=== PATIENT | male | born 1965 | race Native Hawaiian/Other Pacific Islander ===

== ENCOUNTER 2017-02-28 08:39 | Outpatient (CLI) | payer BC | END 2017-02-28 19:02 | disposition home or self-care (01) | LOC: US 08:39 | DX: R10.11 Right upper quadrant pain (principal) ==

== ENCOUNTER 2017-04-24 09:52 | Outpatient (CLI) | payer BC | END 2017-04-24 11:55 | disposition home or self-care (01) | LOC: NM 09:52 | DX: R10.11 Right upper quadrant pain (principal) | CPT/HCPCS: A9537 ==

== ENCOUNTER 2018-03-06 07:52 | Day surgery (SDC) | payer BC ==
[2018-03-06 08:46] LABS: PLATELET COUNT 243 K/uL (142-355)
[2018-03-06 08:58] LABS: POTASSIUM 4.1 mmol/L (3.6-5.2)
== END 2018-03-06 10:32 | disposition home or self-care (01) ==
LOC: OR 07:52
PROVIDERS: Student in an Organized Health Care Education/Training Program
PROC: 0DB68ZZ Excision of Stomach, Via Natural or Artificial Opening Endoscopic (ICD-10-PCS; principal; 2018-03-06)
DX: K29.50 Unspecified chronic gastritis without bleeding (principal); K31.84 Gastroparesis; R10.84 Generalized abdominal pain; R14.0 Abdominal distension (gaseous); K21.9 Gastro-esophageal reflux disease without esophagitis; R11.0 Nausea
CPT/HCPCS: 80053; 85027; J2001; J2250; J2704

== ENCOUNTER 2018-03-23 13:26 | Outpatient (CLI) | payer BC | END 2018-03-23 21:52 | disposition home or self-care (01) | LOC: RAD 13:26 → RESP 13:26 → RAD 21:52 | DX: Z01.818 Encounter for other preprocedural examination (principal) | CPT/HCPCS: 93005 ==

== ENCOUNTER 2021-01-04 14:44 | Outpatient (CLI) | payer OTHER | END 2021-01-04 19:16 | disposition home or self-care (01) | LOC: RAD 14:44 | PROVIDERS: ATTEND Internal Medicine | DX: I25.10 Atherosclerotic heart disease of native coronary artery without angina pectoris (principal); I10 Essential (primary) hypertension; E78.00 Pure hypercholesterolemia, unspecified; Z89.511 Acquired absence of right leg below knee; R60.9 Edema, unspecified; G62.9 Polyneuropathy, unspecified; M19.90 Unspecified osteoarthritis, unspecified site; E11.319 Type 2 diabetes mellitus with unspecified diabetic retinopathy without macular edema; E11.40 Type 2 diabetes mellitus with diabetic neuropathy, unspecified; Z86.16 Personal history of COVID-19 ==